=== PATIENT | female | born 1945 | race American Indian/Alaskan Native ===

== ENCOUNTER 2018-07-28 09:07 | Inpatient (IN) | payer MEDICARE ==
[2018-07-28] MEDS: NACL 0.9% 1000 ML 1,000 ML IV SCH (10:30)
[2018-07-28] MEDS ORDERED: ROBINUL ONE (10:55)
--- NOTE | 2018-07-28 11:07 | Anesthesia Consultation ---
<KIERSTEN GIVENS - Last Filed: 07/28/18 11:03> Anesthesia Consult and Med Hx Date of service: 07/28/18 - Airway Anesthetic Teeth Evaluation: Edentulous ROM Head & Neck: Adequate Mental/Hyoid Distance: Adequate Mallampati Class: Class III Intubation Access Assessment: Possibly Difficult - Pre-Operative Health Status ASA Pre-Surgery Classification: ASA3 Proposed Anesthetic Plan: MAC - Pulmonary Hx Smoking: Yes (quit 10 months ago) Hx Asthma: Yes SOB: Yes - Cardiovascular System Hx Hypertension: Yes Hx Cardia Arrhythmia: Yes (HR 39-41, EKG shows 2:1 AV block) - Central Nervous System CVA: Yes Hx Psychiatric Problems: Yes (deoression/anxiety) - Other Systems Hx Obesity: Yes (BMI 44.8) - Additional Comments Anesthesia Medical History Comments: HR is 40', asymptomatic, have not been seen by pairing machine operator before, 12 lead EKG shows AV block. Given 0.4 mg of Robinol with no effect. Place on O2 - 2 l/m <KOFFI HUFFMAN - Last Filed: 07/29/18 11:35> Anesthesia Consult and Med Hx - Airway Anesthetic Teeth Evaluation: Edentulous Mental/Hyoid Distance: Inadequate Mallampati Class: Class III Intubation Access Assessment: Possibly Difficult - Pulmonary Exam CTA: No (mild scattered wheezing) - Cardiac Exam Cardiac Exam: RRR - Pre-Operative Health Status ASA Pre-Surgery Classification: ASA3 Proposed Anesthetic Plan: MAC - Pulmonary Hx Smoking: Yes Hx Asthma: Yes SOB: Yes (chornic; currently at baseline) - Cardiovascular System Hx Hypertension: Yes Hx Cardia Arrhythmia: Yes (HR 30-40s, EKG shows 2:1 AV block) Hx Pacemaker: No - Central Nervous System CVA: Yes Hx Psychiatric Problems: Yes (depression/anxiety) - Other Systems Hx Obesity: Yes - Additional Comments Anesthesia Medical History Comments: Patient originally scheduled for outpatient colonoscopy but found have 2:1 AV block (no previous hx of arrythmia or heart disease). She was admitted directly for cardiology evaluation and is now scheduled for pacemaker placement. Normal EF without significant valvulopathy on TTE 07/28/18. Will administer albuterol preop for mild wheezing on exam.
[2018-07-28] MEDS ORDERED: SODIUM CHLORIDE FLUSH SYRINGE 10 ML IV PRN (13:06)
[2018-07-28] MEDS ORDERED: TYLENOL PO PRN (13:06)
[2018-07-28] MEDS ORDERED: ZOFRAN IV PRN (13:06)
--- NOTE | 2018-07-28 13:17 | Consultation ---
History of Present Illness Consult date: 07/28/18 Consult reason: bradycardia History of present illness: The patient is a 72-year-old woman with a history of hypertension, who usually receives her care at the [facility]. She has no prior cardiac history. She presented to the hospital outpatient GI lab today, ostensibly for a routine colonoscopy. On telemetry prior to her procedure, she was found with persistent marked bradycardia, heart rate 39. She was otherwise asymptomatic for dizziness and fatigue or syncope. Blood pressure was elevated at 170 systolic. A 12-lead EKG was done, which revealed an underlying sinus rhythm with 2-1 AV block. Otherwise there are no ischemic ST or T wave abnormalities on the ECG. A review of the patient's medications shows no AV node blocking agents, and she denies a history of thyroid disease. We have recommended that the planned GI procedure be canceled, the patient will be admitted to telemetry for further workup of the malignant bradycardia, in anticipation of likely pacemaker implant. Past History Past Medical History: hypertension, other (morbid obesity) Medications and Allergies Allergies Allergy/AdvReac Type Severity Reaction Status Date / Time No Known Allergies Allergy Verified 07/27/18 12:28 Home Medications Medication Instructions Recorded Confirmed Last Taken Type ALBUTEROL Inhaler (OR & NICU) 2 puff INHALATION PRN PRN 07/27/18 07/28/18 07/25/18 History Abilify 30 mg PO DAILY 07/27/18 07/28/18 07/25/18 History Aspirin BABY CHEW TAB 81 mg PO DAILY 07/27/18 07/28/18 07/23/18 History Budesonide 32 mcg INNOSTRIL DAILY 07/27/18 07/28/18 07/25/18 History Hydrochlorothiazide 25 mg PO DAILY 07/27/18 07/28/18 07/25/18 History Lisinopril 20 mg PO DAILY 07/27/18 07/28/18 07/25/18 History Mometasone Furoate 0.1 mg TRANSDERMA DAILY 07/27/18 07/28/18 07/25/18 History Simvastatin 20 mg PO DAILY 07/27/18 07/28/18 07/25/18 History Active Meds: Active Medications Sodium Chloride (Nacl 0.9% 1000 Ml) 1,000 mls @ 50 mls/hr IV DIRECT IMANI Last Admin: 07/28/18 10:30 Dose: 50 mls/hr Documented by: Ondansetron HCl (Zofran) 4 mg IV Q8H PRN PRN Reason: Nausea And Vomiting Review of Systems Cardiovascular: lightheadedness, no chest pain, no orthopnea, no palpitations, no rapid/irregular heart beat, no edema, no syncope, no shortness of breath Physical Examination Vital Signs Temp Pulse Resp BP Pulse Ox 98.0 F 42 L 12 103/71 95 07/28/18 10:24 07/28/18 10:24 07/28/18 10:24 07/28/18 10:24 07/28/18 10:24 General appearance: no acute distress HEENT: Positive: PERRL Neck: Positive: neck supple Cardiac: Positive: Reg Rate and Rhythm Lungs: Positive: Decreased Breath Sounds Neuro: Positive: Grossly Intact Abdomen: Positive: Soft Female genitourinary: deferred Skin: Positive: Clear Extremities: Absent: edema EKG interpretations - Telemetry EKG Rhythm: Sinus Rhythm (with high grade, 2-1 AV block.) Assessment and Plan - Patient Problems (1) Heart block Current Visit: Yes Status: Acute Plan to address problem: Patient is admitted with severe bradycardia, sinus with 2-1 AV block, we will get thyroid profile, routine electrolytes, chest x-ray, continue telemetry monitoring. Would likely need pacemaker implant. (2) Uncontrolled hypertension Current Visit: Yes Status: Acute Plan to address problem: Blood pressure control with lisinopril and Procardia XL. Echocardiogram has been ordered for left ventricular function.
--- NOTE | 2018-07-28 13:32 | XRay Report ---
PORTABLE CHEST: Heart block. An AP portable view of the chest demonstrates a normal cardiac contour considering the limits of this technique. The lungs are clear with no evidence of infiltrate, fluid or failure. IMPRESSION: Normal portable chest.
[2018-07-28] MEDS: ZESTRIL PO SCH ×2 (14:00→22:03)
[2018-07-28] MEDS ORDERED: [UNRECOGNIZED DRUG - REMARK] INHALATION PRN (14:41)
[2018-07-28] MEDS ORDERED: NON-FORMULARY (Simvastatin 20 MG) PO SCH (14:45)
[2018-07-28] MEDS ORDERED: ABILIFY 30 MG PO SCH (14:45)
[2018-07-28] MEDS ORDERED: NON-FORMULARY (Lisinopril 20 MG) PO SCH (14:45)
[2018-07-28] MEDS ORDERED: NON-FORMULARY (Aspirin Baby Chew Tab 81 MG) PO SCH (14:45)
[2018-07-28] MEDS ORDERED: NON-FORMULARY (Hydrochlorothiazide 25 MG) PO SCH (14:45)
[2018-07-28] MEDS ORDERED: BUDESONIDE 32 MCG InNostril SCH (14:45)
--- NOTE | 2018-07-28 14:46 | History and Physical Report ---
History of Present Illness Date of examination: 07/28/18 Date of admission: 07/28/18 13:06 Chief complaint: Complete Heart Block in GI lab History of present illness: 72-year-old woman with a history of hypertension ,Asthma , CVA and pychiatric problems--Depression/anxiety who usually receives her care at the [facility] with no prior cardiac history presented to the hospital outpatient GI lab today, for a routine colonoscopy. On telemetry prior to her procedure, she was found with persistent marked bradycardia, heart rate 39. She was otherwise asymptomatic for dizziness and fatigue or syncope. Blood pressure was elevated . A 12-lead EKG was done, which revealed an underlying sinus rhythm with 2-1 AV block. Otherwise there are no ischemic ST or T wave abnormalities on the ECG. A review of the patient's medications shows no AV node blocking agents, and she denies a history of thyroid disease. GI procedure was canceled, Patient to be admitted to telemetry for further workup of the malignant bradycardia, in anticipation of likely pacemaker implant. Past History Past Medical History: hypertension, stroke, other (morbid obesity,Depression ,Anxiety,Asthma) Past Surgical History: Other Social history: smoking (Former smoker) Family history: hypertension Medications and Allergies Allergies Allergy/AdvReac Type Severity Reaction Status Date / Time No Known Allergies Allergy Verified 07/27/18 12:28 Home Medications Medication Instructions Recorded Confirmed Last Taken Type ALBUTEROL Inhaler (OR & NICU) 2 puff INHALATION PRN PRN 07/27/18 07/28/18 07/25/18 History Abilify 30 mg PO DAILY 07/27/18 07/28/18 07/25/18 History Aspirin BABY CHEW TAB 81 mg PO DAILY 07/27/18 07/28/18 07/23/18 History Budesonide 32 mcg INNOSTRIL DAILY 07/27/18 07/28/18 07/25/18 History Hydrochlorothiazide 25 mg PO DAILY 07/27/18 07/28/18 07/25/18 History Lisinopril 20 mg PO DAILY 07/27/18 07/28/18 07/25/18 History Mometasone Furoate 0.1 mg TRANSDERMA DAILY 07/27/18 07/28/18 07/25/18 History Simvastatin 20 mg PO DAILY 07/27/18 07/28/18 07/25/18 History Active Meds: Active Medications Acetaminophen (Tylenol) 650 mg PO Q4H PRN PRN Reason: Pain MILD(1-3)/Fever >100.5/LAI Aspirin (Baby Aspirin) 81 mg PO QDAY [facility] Enoxaparin Sodium (Lovenox) 40 mg SUB-Q BID IMANI Sodium Chloride (Nacl 0.9% 1000 Ml) 1,000 mls @ 50 mls/hr IV DIRECT IMANI Last Admin: 07/28/18 10:30 Dose: 50 mls/hr Documented by: Lisinopril (Zestril) 20 mg PO BID IM[facility] Miscellaneous Medication (Abilify) 30 mg PO DAILY IMANI Miscellaneous Medication (Albuterol Inhaler (Or & Nicu)) 2 puff INHALATION PRN PRN PRN Reason: Wheezing Miscellaneous Medication (Aspirin Baby Chew Tab) 81 mg PO DAILY IMANI Miscellaneous Medication (Budesonide) 32 mcg InNostril DAILY IM[facility] Miscellaneous Medication (Hydrochlorothiazide) 25 mg PO DAILY IM[facility] Miscellaneous Medication (Lisinopril) 20 mg PO DAILY IM[facility] Miscellaneous Medication (Simvastatin) 20 mg PO DAILY [facility] Nifedipine (Procardia Xl) 60 mg PO QDAY [facility] Ondansetron HCl (Zofran) 4 mg IV Q8H PRN PRN Reason: Nausea And Vomiting Sodium Chloride (Sodium Chloride Flush Syringe 10 Ml) 10 ml IV BID IMANI Sodium Chloride (Sodium Chloride Flush Syringe 10 Ml) 10 ml IV PRN PRN PRN Reason: LINE FLUSH Review of Systems All systems: negative Exam - Constitutional Vitals: Temp Pulse Resp BP Pulse Ox 98.0 F 42 L 12 103/71 95 07/28/18 10:24 07/28/18 10:24 07/28/18 10:24 07/28/18 10:24 07/28/18 10:24 General appearance: Present: no acute distress, well-nourished - EENT Eyes: Present: PERRL ENT: hearing intact, clear oral mucosa - Neck Neck: Present: supple, normal ROM - Respiratory Respiratory effort: normal Respiratory: bilateral: CTA - Cardiovascular Heart rate: 39 Rhythm: regular Heart Sounds: Present: S1 & S2. Absent: rub, click - Extremities Extremities: no ischemia, pulses intact, pulses symmetrical, No edema Peripheral Pulses: within normal limits - Abdominal General gastrointestinal: Present: soft, non-tender, non-distended, normal bowel sounds Female genitourinary: Present: normal - Integumentary Integumentary: Present: clear, warm, dry - Musculoskeletal Musculoskeletal: gait normal, strength equal bilaterally - Psychiatric Psychiatric: appropriate mood/affect, intact judgment & insight - Neurologic Neurologic: CNII-XII intact, moves all extremities - Allied Health Allied health notes reviewed: nursing, case management Results - Labs CBC & Chem 7: 07/28/18 14:30 - Imaging and Cardiology EKG: report reviewed Chest x-ray: report reviewed (NAF) Assessment and Plan Advance Directives: Yes (Full code) VTE prophylaxis?: Chemical Plan of care discussed with patient/family: Yes - Patient Problems (1) Complete heart block Current Visit: Yes Status: Acute Plan to address problem: Cardiology consult for possible pacemaker insertion (2) Hypertensive emergency Current Visit: Yes Status: Acute Plan to address problem: Patient resumed on her home antihypertensives including lisinopril 20 mg once a day and hydrochlorothiazide 25 mg once a day IV hydralazine 10 mg every every 3 hours ordered for blood pressure more than 160/100 (3) Asthma Current Visit: Yes Status: Chronic Qualifiers: Asthma persistence: unspecified Plan to address problem: Continue albuterol inhalers on a when necessary basis (4) Hyperlipidemia Current Visit: Yes Status: Chronic Qualifiers: Hyperlipidemia type: mixed hyperlipidemia Qualified Code(s): E78.2 - Mixed hyperlipidemia Plan to address problem: Continue statins (5) Allergic rhinitis Current Visit: Yes Status: Chronic Plan to address problem: Continue steroid inhalers (6) Depression Current Visit: Yes Status: Chronic Qualifiers: Depression Type: unspecified Qualified Code(s): F32.9 - Major depressive disorder, single episode, unspecified Plan to address problem: Continue Abilify (7) DVT prophylaxis Current Visit: Yes Status: Acute Plan to address problem: Continue Lovenox and GI prophylaxis
[2018-07-28 14:54] LABS: Basophils # (Auto) 0.1 K/mm3 (0.0-0.1); Basophils % (Auto) 0.7 % (0.0-1.8); Eosinophils # (Auto) 0.2 K/mm3 (0.0-0.4); Eosinophils % (Auto) 2.3 % (0.0-4.3); Hematocrit 44.5 % (30.3-42.9); Hemoglobin 14.7 gm/dl (10.1-14.3); Lymphocytes # (Auto) 2.3 K/mm3 (1.2-5.4); Lymphocytes % (Auto) 21.9 % (13.4-35.0); Mean Corpuscular HGB Conc 33 % (30-34); Mean Corpuscular Volume 78 fl (79-97); Monocytes # (Auto) 0.6 K/mm3 (0.0-0.8); Monocytes % (Auto) 5.9 % (0.0-7.3); Platelet Count 298 K/mm3 (140-440); Red Blood Count 5.69 M/mm3 (3.65-5.03)
[2018-07-28] MEDS ORDERED: PROVENTIL IH PRN (15:48)
[2018-07-28] MEDS ORDERED: BABY ASPIRIN PO SCH (16:00)
[2018-07-28] MEDS ORDERED: ZESTRIL PO SCH (16:00)
[2018-07-28 17:09] LABS: Alanine Aminotransferase 23 units/L (7-56); BUN/Creatinine Ratio 17; Blood Urea Nitrogen 15 mg/dL (7-17); Calcium 9.4 mg/dL (8.4-10.2); Hemolysis Index 11
[2018-07-28] MEDS: PROCARDIA XL PO SCH ×2 (18:39→19:12)
[2018-07-28] MEDS: HCTZ PO SCH (18:39)
[2018-07-28] MEDS: PRAVACHOL PO SCH (22:01)
[2018-07-28] MEDS: FLONASE NS SCH (22:02)
[2018-07-28] MEDS: LOVENOX SUB-Q SCH (22:02)
[2018-07-28] MEDS: ABILIFY PO SCH (22:02)
[2018-07-28] MEDS: SODIUM CHLORIDE FLUSH SYRINGE 10 ML IV SCH (22:03)
[2018-07-29] MEDS: NACL 0.9% 1000 ML 1,000 ML IV SCH ×2 (04:07→12:52)
[2018-07-29 06:26] LABS: BUN/Creatinine Ratio 21; Blood Urea Nitrogen 21 mg/dL (7-17); Calcium 8.7 mg/dL (8.4-10.2); Hemolysis Index 19
[2018-07-29] MEDS: FLONASE NS SCH (09:35)
[2018-07-29] MEDS: ABILIFY PO SCH (09:35)
[2018-07-29] MEDS: HCTZ PO SCH (09:36)
[2018-07-29] MEDS: PROCARDIA XL PO SCH (09:36)
[2018-07-29] MEDS: LOVENOX SUB-Q SCH ×2 (09:36→21:53)
[2018-07-29] MEDS: SODIUM CHLORIDE FLUSH SYRINGE 10 ML IV SCH ×2 (09:36→21:56)
[2018-07-29] MEDS: BABY ASPIRIN PO SCH (09:36)
[2018-07-29] MEDS: ZESTRIL PO SCH ×2 (09:36→21:53)
[2018-07-29] MEDS ORDERED: XYLOCAINE MPF 2% ONE (10:57)
[2018-07-29] MEDS ORDERED: DIPRIVAN 10 MG/ML IV ONE ×2 (10:57)
[2018-07-29] MEDS ORDERED: VERSED ONE (11:00)
[2018-07-29] MEDS ORDERED: SUBLIMAZE ONE (11:01)
[2018-07-29] MEDS ORDERED: NEO SYNEPHRINE/NS Syringe(OR USE) IV ONE ×3 (11:13)
[2018-07-29] MEDS ORDERED: NEO SYNEPHRINE ONE (11:14)
[2018-07-29] MEDS ORDERED: PROAIR IH ONE (11:23)
--- NOTE | 2018-07-29 11:36 | Anesthesia Day of Surgery ---
Anesthesia Day of Surgery - Day of Surgery Patient Examined: Yes Patient H&P Reviewed: Yes Patient is NPO: Yes Beta Blockers: No (contraindicated (patient with 2:1 AV block; finesse to 30s) )
[2018-07-29] MEDS ORDERED: NACL 0.9% 1,000 ML, .VANCOMYCIN VIAL 1,000 MG IR ONE (12:00)
[2018-07-29 12:19] LABS: INR 1.02 (0.87-1.13)
--- NOTE | 2018-07-29 12:22 | Consultation ---
History of Present Illness Consult date: 07/29/18 Consult reason: other History of present illness: 72 YO woman with h/o htn who presented to hospital yesterday for elective colonoscopy and was noted to have severe bradycardia. Procedure was cancelled and patient was admitted to hospital. Patient reports she has not had any episodes of syncope or pre-syncope. She has intermittent dizzyness and frequent exertional fatigue. She has not had any previous cardiac complaints. Initial ECG was consistent with sinus rhythm with 2:1 AV block but current telemetry monitoring is consistent with complete heart block and junctional escape rhythm. Echocardiogram yesterday revealed normal EF with concentric LVH. Past History Past Medical History: hypertension, stroke, other (morbid obesity,Depression ,Anxiety,Asthma) Past Surgical History: Other Social history: smoking (Former smoker) Family history: hypertension Medications and Allergies Allergies Allergy/AdvReac Type Severity Reaction Status Date / Time No Known Allergies Allergy Verified 07/27/18 12:28 Home Medications Medication Instructions Recorded Confirmed Last Taken Type ALBUTEROL Inhaler (OR & NICU) 2 puff INHALATION PRN PRN 07/27/18 07/28/18 07/25/18 History Abilify 30 mg PO DAILY 07/27/18 07/28/18 07/25/18 History Aspirin BABY CHEW TAB 81 mg PO DAILY 07/27/18 07/28/18 07/23/18 History Budesonide 32 mcg INNOSTRIL DAILY 07/27/18 07/28/18 07/25/18 History Hydrochlorothiazide 25 mg PO DAILY 07/27/18 07/28/18 07/25/18 History Lisinopril 20 mg PO DAILY 07/27/18 07/28/18 07/25/18 History Mometasone Furoate 0.1 mg TRANSDERMA DAILY 07/27/18 07/28/18 07/25/18 History Simvastatin 20 mg PO DAILY 07/27/18 07/28/18 07/25/18 History Budesonide/Formoterol Fumarate 160 mcg INHALATION BID 07/28/18 07/28/18 Unknown History [Symbicort 160-4.5 Mcg Inhaler] Active Meds: Active Medications Acetaminophen (Tylenol) 650 mg PO Q4H PRN PRN Reason: Pain MILD(1-3)/Fever >100.5/LAI Albuterol (Proventil) 2.5 mg IH Q4HRT PRN PRN Reason: Wheezing Aripiprazole (Abilify) 30 mg PO QDAY [facility] Last Admin: 07/29/18 09:35 Dose: Not Given Documented by: Aspirin (Baby Aspirin) 81 mg PO QDAY [facility] Last Admin: 07/29/18 09:36 Dose: Not Given Documented by: Enoxaparin Sodium (Lovenox) 40 mg SUB-Q BID [facility] Last Admin: 07/29/18 09:36 Dose: Not Given Documented by: Fluticasone Propionate (Flonase) 100 mcg NS QDAY [facility] Last Admin: 07/29/18 09:35 Dose: 100 mcg Documented by: Hydrochlorothiazide (Hctz) 25 mg PO QDAY [facility] Last Admin: 07/29/18 09:36 Dose: Not Given Documented by: Sodium Chloride (Nacl 0.9% 1000 Ml) 1,000 mls @ 50 mls/hr IV DIRECT [facility] Last Admin: 07/29/18 04:07 Dose: 50 mls/hr Documented by: Lisinopril (Zestril) 20 mg PO BID [facility] Last Admin: 07/29/18 09:36 Dose: Not Given Documented by: Nifedipine (Procardia Xl) 60 mg PO QDAY [facility] Last Admin: 07/29/18 09:36 Dose: Not Given Documented by: Ondansetron HCl (Zofran) 4 mg IV Q8H PRN PRN Reason: Nausea And Vomiting Pravastatin Sodium (Pravachol) 40 mg PO QHS [facility] Last Admin: 07/28/18 22:01 Dose: 40 mg Documented by: Sodium Chloride (Sodium Chloride Flush Syringe 10 Ml) 10 ml IV BID [facility] Last Admin: 07/29/18 09:36 Dose: 10 ml Documented by: Sodium Chloride (Sodium Chloride Flush Syringe 10 Ml) 10 ml IV PRN PRN PRN Reason: LINE FLUSH Review of Systems All systems: negative (per hpi) Physical Examination Vital Signs Temp Pulse Resp BP Pulse Ox 98.0 F 42 L 12 103/71 95 07/28/18 10:24 07/28/18 10:24 07/28/18 10:24 07/28/18 10:24 07/28/18 10:24 General appearance: no acute distress HEENT: Positive: PERRL Neck: Positive: neck supple. Negative: JVD/HJR Cardiac: Positive: Reg Rate and Rhythm Lungs: Positive: clear to auscultation Neuro: Positive: Grossly Intact Abdomen: Positive: Soft, Active Bowel Sounds Extremities: Absent: edema Results 07/28/18 14:30 07/29/18 05:36 Cardiac Enzymes 07/28/18 Range/Units 14:30 AST 17 (5-40) units/L CBC 07/28/18 Range/Units 14:30 WBC 10.5 (4.5-11.0) K/mm3 RBC 5.69 H (3.65-5.03) M/mm3 Hgb 14.7 H (10.1-14.3) gm/dl Hct 44.5 H (30.3-42.9) % Plt Count 298 (140-440) K/mm3 Lymph # 2.3 (1.2-5.4) K/mm3 Bonner # 0.6 (0.0-0.8) K/mm3 Eos # 0.2 (0.0-0.4) K/mm3 Baso # 0.1 (0.0-0.1) K/mm3 Comprehensive Metabolic Panel 07/28/18 07/29/18 Range/Units 14:30 05:36 Sodium 141 141 (137-145) mmol/L Potassium 4.7 4.0 (3.6-5.0) mmol/L Chloride 101.6 104.3 (98-107) mmol/L Carbon Dioxide 26 26 (22-30) mmol/L BUN 15 21 H (7-17) mg/dL Creatinine 0.9 1.0 (0.7-1.2) mg/dL Glucose 111 H 128 H (65-100) mg/dL Calcium 9.4 8.7 (8.4-10.2) mg/dL AST 17 (5-40) units/L ALT 23 (7-56) units/L Alkaline Phosphatase 92 (35-129) units/L Total Protein 7.8 (6.3-8.2) g/dL Albumin 4.0 (3.9-5) g/dL Assessment and Plan Complete heart block with junctional escape rhythm Htn Plan: Extensively discussed PPM implant. She wants to proceed.
[2018-07-29] MEDS ORDERED: NACL 0.9% 500 ML IR ONE (12:25)
[2018-07-29] MEDS ORDERED: MARCAINE 0.5% INFILTRATI ONE (12:26)
[2018-07-29] MEDS ORDERED: ANCEF/STERILE WATER 2 GM/20 ML 2 GM/20 ML SYRINGE IV ONE (12:26)
[2018-07-29] MEDS ORDERED: XYLOCAINE 1% 20 mL ONE (12:26)
[2018-07-29] MEDS ORDERED: NACL 0.9% 1000 ML 1,000 ML ONE (12:38)
--- NOTE | 2018-07-29 12:54 | Progress Note ---
Assessment and Plan Assessment and plan: 72yr Old female patient with significant past medical history of hypertension was planned for outpatient colonoscopy She was found to have bradycardia with heart rate ranging between 39-46, patient was sent to [facility] emergency room for further evaluation and management. Patient was found to have complete heart block, asymptomatic. Patient was evaluated by cardiology/electrophysiology permanent pacemaker placement today. --Complete heart block; Evaluated by cardiology, cage tender s/p PPM placement today, postoperative care --Hypertensive emergency; present on admission Blood pressures moderate control, continue current antihypertensives and when necessary medications ----Bronchial asthma; Oxygen titrated O2 sats more than 90%, nebs Supportive care --History of depression; continue current home medications --Dyslipidemia; stable on lipid-lowering medications --Allergies/URI symptoms; Zyrtec, Nasonex. Supportive care --DVT prophylaxis; Lovenox Possible discharge in 1-2 days if stable Discharge planning per case management; home health as needed History Interval history: Patient seen and examined medical records reviewed Patient admitted with complete heart block, evaluated by EP /intelligence engineer patient underwent Permanent pacemaker placement Patient feels better complaints of some nasal congestion Denies chest pain or shortness of breath Alert awake oriented 3 not in acute distress Vital signs noted Hospitalist Physical - Constitutional Vitals: Temp Pulse Resp BP Pulse Ox 98.4 F 39 L 20 101/35 100 07/29/18 08:00 07/29/18 08:00 07/29/18 08:00 07/29/18 08:00 07/29/18 08:00 General appearance: Present: no acute distress, well-nourished, obese (morbidly obese) - EENT Eyes: Present: PERRL, EOM intact - Neck Neck: Present: supple, normal ROM - Respiratory Respiratory effort: normal Respiratory: bilateral: diminished, negative: rales, rhonchi, wheezing - Cardiovascular Rhythm: regular Heart Sounds: Present: S1 & S2 - Extremities Extremities: no ischemia, No edema Extremity abnormal: other (left arm sling in place) - Abdominal General gastrointestinal: soft, non-tender, non-distended, normal bowel sounds - Integumentary Integumentary: Present: clear, warm - Psychiatric Psychiatric: appropriate mood/affect, cooperative - Neurologic Neurologic: CNII-XII intact, moves all extremities Results - Labs CBC & Chem 7: 07/28/18 14:30 07/29/18 05:36 Labs: Laboratory Last Values WBC 10.5 K/mm3 (4.5-11.0) 07/28/18 14:30 RBC 5.69 M/mm3 (3.65-5.03) H 07/28/18 14:30 Hgb 14.7 gm/dl (10.1-14.3) H 07/28/18 14:30 Hct 44.5 % (30.3-42.9) H 07/28/18 14:30 MCV 78 fl (79-97) L 07/28/18 14:30 MCH 26 pg (28-32) L 07/28/18 14:30 MCHC 33 % (30-34) 07/28/18 14:30 RDW 15.0 % (13.2-15.2) 07/28/18 14:30 Plt Count 298 K/mm3 (140-440) 07/28/18 14:30 Lymph % (Auto) 21.9 % (13.4-35.0) 07/28/18 14:30 Putnam % (Auto) 5.9 % (0.0-7.3) 07/28/18 14:30 Eos % (Auto) 2.3 % (0.0-4.3) 07/28/18 14:30 Baso % (Auto) 0.7 % (0.0-1.8) 07/28/18 14:30 Lymph # 2.3 K/mm3 (1.2-5.4) 07/28/18 14:30 [place]nam # 0.6 K/mm3 (0.0-0.8) 07/28/18 14:30 Eos # 0.2 K/mm3 (0.0-0.4) 07/28/18 14:30 Baso # 0.1 K/mm3 (0.0-0.1) 07/28/18 14:30 Seg Neutrophils % 69.2 % (40.0-70.0) 07/28/18 14:30 Seg Neutrophils # 7.3 K/mm3 (1.8-7.7) 07/28/18 14:30 PT 13.1 Sec. (12.2-14.9) 07/29/18 11:35 INR 1.02 (0.87-1.13) 07/29/18 11:35 Sodium 141 mmol/L (137-145) 07/29/18 05:36 Potassium 4.0 mmol/L (3.6-5.0) 07/29/18 05:36 Chloride 104.3 mmol/L (98-107) 07/29/18 05:36 Carbon Dioxide 26 mmol/L (22-30) 07/29/18 05:36 15 mmol/L 07/29/18 05:36 BUN 21 mg/dL (7-17) H 07/29/18 05:36 1.0 mg/dL (0.7-1.2) 07/29/18 05:36 Estimated GFR > 60 ml/min 07/29/18 05:36 21 % 07/29/18 05:36 Glucose 128 mg/dL (65-100) H 07/29/18 05:36 Calcium 8.7 mg/dL (8.4-10.2) 07/29/18 05:36 Magnesium 1.80 mg/dL (1.7-2.3) 07/28/18 14:30 0.40 mg/dL (0.1-1.2) 07/28/18 14:30 AST 17 units/L (5-40) 07/28/18 14:30 ALT 23 units/L (7-56) 07/28/18 14:30 92 units/L (35-129) 07/28/18 14:30 7.8 g/dL (6.3-8.2) 07/28/18 14:30 4.0 g/dL (3.9-5) 07/28/18 14:30 1.1 % 07/28/18 14:30 TSH 1.540 mlU/mL (0.270-4.200) 07/28/18 14:30 Active Medications - Current Medications Current Medications: Generic Name Dose Route Start Last Admin Trade Name Freq PRN Reason Stop Dose Admin Acetaminophen 650 mg 07/28/18 13:06 Tylenol PO Q4H PRN Pain MILD(1-3)/Fever >100.5/LAI Albuterol 2.5 mg 07/28/18 15:48 Proventil IH Q4HRT PRN Wheezing Aripiprazole 30 mg 07/28/18 16:00 07/29/18 09:35 Abilify PO Not Given QDAY [facility] Aspirin 81 mg 07/29/18 10:00 07/29/18 09:36 Baby Aspirin PO Not Given QDAY [facility] Enoxaparin Sodium 40 mg 07/28/18 22:00 07/29/18 09:36 Lovenox SUB-Q Not Given BID [facility] Fluticasone Propionate 100 mcg 07/28/18 21:00 07/29/18 09:35 Flonase NS 100 mcg QDAY IM[facility] Administration Hydrochlorothiazide 25 mg 07/28/18 16:00 07/29/18 09:36 Hctz PO Not Given QDAY [facility] Sodium Chloride 1,000 mls @ 50 mls/hr 07/28/18 09:00 07/29/18 04:07 Nacl 0.9% 1000 Ml IV 50 mls/hr DIRECT IMANI Administration Lisinopril 20 mg 07/28/18 14:00 07/29/18 09:36 Zestril PO Not Given BID [facility] Nifedipine 60 mg 07/28/18 14:30 07/29/18 09:36 Procardia Xl PO Not Given QDAY [facility] Ondansetron HCl 4 mg 07/28/18 13:06 Zofran IV Q8H PRN Nausea And Vomiting Pravastatin Sodium 40 mg 07/28/18 22:00 07/28/18 22:01 Pravachol PO 40 mg QHS IM[facility] Administration Sodium Chloride 10 ml 07/28/18 22:00 07/29/18 09:36 Sodium Chloride Flush Syringe 10 Ml IV 10 ml BID IMANI Administration Sodium Chloride 10 ml 07/28/18 13:06 Sodium Chloride Flush Syringe 10 Ml IV PRN PRN LINE FLUSH
[2018-07-29] MEDS ORDERED: .VANCOMYCIN VIAL 1,000 MG in NACL 0.9% 1,000 ML IRRIGATION ONE (13:17)
[2018-07-29] MEDS ORDERED: NORCO 5/325 PO PRN (13:59)
--- NOTE | 2018-07-29 13:59 | Event Note ---
Date: 07/29/18 Patient underwent dual chamber pacemaker implant without apparent complications. Recommend: 1. Check Chest Xray 2. OK to discharge tomorrow from cardiac perspective if otherwise stable 3. Prescribe short course of pain medication (percocet) at time of discharge. Timo Mathew MD
[2018-07-29] MEDS ORDERED: ANCEF/NS 1 GM/50 ML 1 GM/50 ML BAG IV SCH (14:00)
--- NOTE | 2018-07-29 16:33 | XRay Report ---
PROCEDURE: XR CHEST 1V AP TECHNIQUE: Chest radiograph single view. HISTORY: Pacemaker Postop COMPARISONS: None . FINDINGS: Single frontal view of the chest was acquired and demonstrates presence of cardiomegaly. Th ere is a pacing device. There is no evidence of congestive heart failure. There is no pneumothorax. IMPRESSION: Cardiomegaly This document is electronically signed by Martín Banks MD., July 29 2018 04:31:57 PM ET
[2018-07-29] MEDS ORDERED: CLARITIN-D 24HR PO ONE (17:30)
[2018-07-29] MEDS: PRAVACHOL PO SCH (21:53)
[2018-07-29] MEDS: ANCEF/NS 1 GM/50 ML 1 GM/50 ML BAG IV SCH (21:53)
[2018-07-30] MEDS: ANCEF/NS 1 GM/50 ML 1 GM/50 ML BAG IV SCH (04:55)
[2018-07-30] MEDS ORDERED: CLARITIN-D 24HR PO SCH (10:00)
[2018-07-30] MEDS: SODIUM CHLORIDE FLUSH SYRINGE 10 ML IV SCH (10:06)
--- NOTE | 2018-07-30 11:25 | Discharge Summary ---
Providers - Providers Date of Admission: 07/28/18 13:06 Date of discharge: 07/30/18 Attending physician: TANJA GAMA 07/28/18 12:28 Consult to Cardiology [CONS] Urgent Consulting Provider: DU STEINBERG Reason For Exam: ABNORMAL EKG Primary care physician: JAIME NAIR Hospitalization Reason for admission: Bradycardia prior to colonoscopy Condition: Stable Pertinent studies: Dual-chamber Chamber pacemaker placement Echocardiogram; EF 60-65% [facility] Hospital course: 72yr Old female patient with significant past medical history of hypertension was planned for outpatient colonoscopy She was found to have bradycardia with heart rate ranging between 39-46, patient was sent to [facility] emergency room for further evaluation and management. Patient was found to have complete heart block, asymptomatic. Patient was evaluated by cardiology/electrophysiology. Patient had permanent pacemaker placement.Patient's symptoms improved. Today patient feels better,Vital signs stable Physical exam prior to discharge is stable Discharge Diagnosis: --Complete heart block; Evaluated by cardiology, dance coach s/p PPM placement .f/u cardiology per schedule upon discharge. --Hypertensive emergency; present on admission Blood pressures moderate control,on antihypertensives and when necessary medications ----Bronchial asthma; Oxygen titrated O2 sats more than 90%, nebs Supportive care --History of depression; continue current home medications --Dyslipidemia; stable on lipid-lowering medications --Allergies/URI symptoms; Zyrtec, Nasonex. --DVT prophylaxis; Lovenox DC home,f/u PMD,Cardiology per schedule Disposition: DC/[place]-06 HOME UNDER HOME [facility] Time spent for discharge: 32 min Core Measure Documentation - Palliative Care Palliative Care/ Comfort Measures: Not Applicable - Core Measures Any of the following diagnoses?: none Exam - Constitutional Vitals: Temp Pulse Resp BP Pulse Ox 97.5 F L 84 16 143/68 96 07/30/18 08:42 07/30/18 08:42 07/30/18 08:42 07/30/18 08:42 07/30/18 08:42 General appearance: Present: no acute distress, well-nourished, obese - EENT Eyes: Present: PERRL, EOM intact - Neck Neck: Present: supple, normal ROM - Respiratory Respiratory effort: normal Respiratory: bilateral: diminished, negative: rales, rhonchi - Cardiovascular Rhythm: regular Heart Sounds: Present: S1 & S2 - Extremities Extremities: no ischemia, No edema - Abdominal General gastrointestinal: Present: soft, non-tender, non-distended, normal bowel sounds - Integumentary Integumentary: Present: clear, warm - Musculoskeletal Musculoskeletal: strength equal bilaterally - Psychiatric Psychiatric: appropriate mood/affect - Neurologic Neurologic: moves all extremities Plan Activity: advance as tolerated, fall precautions Diet: other (cardiac diet) Additional Instructions: If you have chest pain or shortness of breath nancy guthrie MD or go to the emergency room. Advised to follow post pacemaker placement instructions, left arm sling, no lifting weights with the left palm Follow up with: JAIME NAIR JR, MD [Primary Care Provider] - 7 Days MALATHI DOMINGUEZ MD [Staff Physician] - 7 Days Prescriptions: Fluticasone [Flonase] 100 mcg NS QDAY #1 bottle oxyCODONE /ACETAMINOPHEN [Percocet 5/325] 1 tab PO BID PRN #10 tablet PRN Reason: Pain , Severe (7-10)
--- NOTE | 2018-07-30 11:27 | Progress Note ---
Assessment and Plan Complete heart block s/p DC PPM Systemic Hypertension Obesity Recommendations: May go home cardiac [facility] Follow-up Dr Mathew in 1-2 weeks Cardiology will sign off Subjective Date of service: 07/30/18 Principal diagnosis: CHB Interval history: Patient is doing well PPM site is intact with no evidence of hematoma Objective Vital Signs Temp Pulse Resp BP Pulse Ox 07/30/18 08:42 97.5 F L 84 16 143/68 96 07/30/18 08:34 18 98 07/30/18 04:29 98.1 F 93 H 18 134/74 93 07/30/18 00:00 98.1 F 84 18 154/66 95 07/29/18 21:00 77 07/29/18 19:50 79 18 143/63 97 07/29/18 16:01 97.9 F 84 20 114/54 92 07/29/18 15:03 64 17 129/60 97 07/29/18 14:45 69 23 122/62 97 07/29/18 14:30 71 15 108/65 97 07/29/18 14:15 69 14 127/61 97 07/29/18 13:00 74 - Physical Examination HEENT: Positive: PERRL Neck: Positive: neck supple. Negative: JVD/HJR Cardiac: Positive: Reg Rate and Rhythm Lungs: Positive: Normal Exam Neuro: Positive: Grossly Intact Abdomen: Positive: Soft, Active Bowel Sounds Skin: Positive: Clear Extremities: Absent: edema - Labs and Meds Coagulation 07/29/18 Range/Units 11:35 PT 13.1 (12.2-14.9) Sec. INR 1.02 (0.87-1.13) - Imaging and Cardiology EKG: report reviewed
[2018-07-30] MEDS: BABY ASPIRIN PO SCH (11:57)
[2018-07-30] MEDS: LOVENOX SUB-Q SCH (11:57)
[2018-07-30] MEDS: PROCARDIA XL PO SCH (11:57)
[2018-07-30] MEDS: HCTZ PO SCH (11:57)
[2018-07-30] MEDS: ZESTRIL PO SCH (12:06)
[2018-07-30] MEDS: ABILIFY PO SCH (12:08)
[2018-07-30] MEDS: FLONASE NS SCH (12:08)
[2018-07-30 14:02] VITALS: BP 146/80
== END 2018-07-30 19:00 | disposition home health service (06) | DRG 243 ==
LOC: GIO 09:07 → 4A 13:06
PROVIDERS: ADMIT Internal Medicine; ATTEND Internal Medicine
PROC: 0JH606Z Insertion of Pacemaker, Dual Chamber into Chest Subcutaneous Tissue and Fascia, Open Approach (ICD-10-PCS; principal; 2018-07-29)
PROC: 02H63JZ Insertion of Pacemaker Lead into Right Atrium, Percutaneous Approach (ICD-10-PCS; 2018-07-29)
PROC: 02HK3JZ Insertion of Pacemaker Lead into Right Ventricle, Percutaneous Approach (ICD-10-PCS; 2018-07-29)
DX: I44.2 Atrioventricular block, complete (principal); I16.1 Hypertensive emergency; Z68.42 Body mass index [BMI] 45.0-49.9, adult; J45.909 Unspecified asthma, uncomplicated; F41.9 Anxiety disorder, unspecified; F32.9 Major depressive disorder, single episode, unspecified; I10 Essential (primary) hypertension; E66.01 Morbid (severe) obesity due to excess calories; I45.9 Conduction disorder, unspecified; E78.2 Mixed hyperlipidemia; Z86.010 Personal history of colon polyps; Z87.891 Personal history of nicotine dependence; Z79.51 Long term (current) use of inhaled steroids; Z79.82 Long term (current) use of aspirin; Z79.899 Other long term (current) drug therapy; Z86.73 Personal history of transient ischemic attack (TIA), and cerebral infarction without residual deficits; Z82.49 Family history of ischemic heart disease and other diseases of the circulatory system
CPT/HCPCS: 33208; 36415; 71045; 80048; 80053; 82962; 83735; 84443; 85025; 85610; 93005; 93010; 93306; G0378; A9270-GY; C1779; C1781; C1785; C1892; J0690; J1650; J2250; J2370; J2704; J3010; J3370; J7030

== ENCOUNTER 2018-09-02 08:50 | Day surgery (SDC) | payer MEDICARE ==
[2018-09-02] MEDS ORDERED: ECOTRIN PO ONE (09:06)
[2018-09-02] MEDS ORDERED: NACL 0.9% 500 ML 500 ML IV SCH (10:00)
[2018-09-02 10:24] LABS: Basophils # (Auto) 0.1 K/mm3 (0.0-0.1); Basophils % (Auto) 0.5 % (0.0-1.8); Eosinophils # (Auto) 0.4 K/mm3 (0.0-0.4); Eosinophils % (Auto) 3.2 % (0.0-4.3); Hematocrit 41.3 % (30.3-42.9); Hemoglobin 13.6 gm/dl (10.1-14.3); Lymphocytes # (Auto) 2.9 K/mm3 (1.2-5.4); Lymphocytes % (Auto) 25.4 % (13.4-35.0); Mean Corpuscular HGB Conc 33 % (30-34); Mean Corpuscular Volume 77 fl (79-97); Monocytes # (Auto) 0.9 K/mm3 (0.0-0.8); Monocytes % (Auto) 7.8 % (0.0-7.3); Platelet Count 294 K/mm3 (140-440); Red Blood Count 5.36 M/mm3 (3.65-5.03); Red Cell Distribution Width 15.3 % (13.2-15.2)
[2018-09-02 10:39] LABS: BUN/Creatinine Ratio 95; Blood Urea Nitrogen 19 mg/dL (7-17); Calcium 9.4 mg/dL (8.4-10.2)
[2018-09-02 11:57] LABS: INR 0.98 (0.87-1.13)
[2018-09-02] MEDS ORDERED: CALAN ONE (12:07)
[2018-09-02] MEDS ORDERED: XYLOCAINE 2% INFILTRATI ONE (12:07)
[2018-09-02] MEDS ORDERED: HEPARIN/NS 5000 UNIT/500ML(CATH LAB) 1,000 ML IR ONE (12:07)
[2018-09-02] MEDS ORDERED: HEPARIN 10,000 UNITS/10 ML ONE (12:07)
[2018-09-02] MEDS ORDERED: NITROGLYCERIN SYRINGE 3 ML ONE (12:07)
[2018-09-02] MEDS ORDERED: VERSED ONE (12:08)
[2018-09-02] MEDS ORDERED: SUBLIMAZE ONE (12:08)
--- NOTE | 2018-09-02 13:19 | Short Stay Summary ---
Short Stay Documentation Date of service: 09/02/18 - History H&P: obtained from office - Allergies and Medications Current Medications: Allergies No Known Allergies Allergy (Verified 07/27/18 12:28) Home Medications Medication Instructions Recorded Confirmed Last Taken Type ALBUTEROL Inhaler (OR & NICU) 2 puff INHALATION PRN PRN 07/27/18 09/02/18 09/02/18 History 2 Abilify 30 mg PO DAILY 07/27/18 09/02/18 09/02/18 History 30mg Aspirin BABY CHEW TAB 81 mg PO DAILY 07/27/18 09/02/18 09/02/18 History 81mg Budesonide 32 mcg INNOSTRIL DAILY 07/27/18 09/02/18 09/02/18 History 1 Hydrochlorothiazide 25 mg PO DAILY 07/27/18 09/02/18 09/02/18 History 25mg Lisinopril 20 mg PO DAILY 07/27/18 09/02/18 09/02/18 History 20mg Mometasone Furoate 0.1 mg TRANSDERMA DAILY 07/27/18 09/02/18 09/02/18 History 0.1mg Simvastatin 20 mg PO DAILY 07/27/18 09/02/18 09/02/18 History 20mg Budesonide/Formoterol Fumarate 160 mcg INHALATION BID 07/28/18 09/02/18 09/02/18 History [Symbicort 160-4.5 Mcg Inhaler] 2 Fluticasone [Flonase] 100 mcg NS QDAY #1 bottle 07/30/18 09/02/18 09/02/18 Rx 100mcg Isosorbide Dinitrate [Isosorbide 30 mg PO DAILY 09/02/18 09/02/18 09/02/18 History Dinitrate ER] 30mg Active Medications Sodium Chloride (Nacl 0.9% 500 Ml) 500 mls @ 50 mls/hr IV DIRECT IMANI Stop: 09/02/18 19:59 - Physical exam General appearance: no acute distress Integumentary: no rash HEENT: Atraumatic Lungs: Clear to auscultation Breasts: deferred Heart: Regular rate Gastrointestinal: normal Female Genitourinary: deferred Rectal Exam: deferred Extremities: no ischemia Neurological: Normal gait - Brief post op/procedure progress note Date of procedure: 09/02/18 Pre-op diagnosis: Chest pain Post-op diagnosis: same Procedure: LHC and LV gram Anesthesia: none Findings: See report Surgeon: RC MENDOZA Estimated blood loss: none Pathology: none Condition: stable - Hospital course Hospital course: Uneventful - Disposition Condition at discharge: Good Disposition: DC-01 TO HOME OR SELFCARE Short Stay Discharge Plan Activity: advance as tolerated Weight Bearing Status: Weight Bear as Tolerated Diet: low fat, low cholesterol, low salt Follow up with: JAIME NAIR JR, MD [Primary Care Provider] - 7 Days
[2018-09-02 15:04] VITALS: BP 105/54
--- NOTE | 2018-09-03 09:06 | Cardiac Catherization Report ---
NUCLEAR CARDIAC IMAGING INDICATION: Chest pain and abnormal myocardial perfusion scan. ORDERING PHYSICIAN: Dr. Timo Mathew. PROCEDURES PERFORMED: 1. Selective left and right coronary angiography. 2. Left ventriculography. DESCRIPTION OF PROCEDURE: After obtaining the consent, the patient was draped using sterile technique. A 2% lidocaine was injected into the right wrist. A 5-Maltese vascular sheath was inserted into the right radial artery. A 5-Maltese JL3.5 catheter was used to selectively engage left coronary artery. A 5-Maltese JR4 catheter was used to selectively engage the right coronary artery. A 5-Maltese JR4 catheter was used to perform a left ventriculogram. No complications occurred during the procedure. Hemostasis was achieved at the end of the procedure using manual pressure. No sedation was administered. FINDINGS: HEMODYNAMICS: Aortic pressure 155/60, LV systolic pressure 158 mmHg, LV end diastolic pressure 22 mmHg. CARDIAC STRUCTURES: The left ventricle is normal in size and systolic function. The left ventricular ejection fraction is estimated at 60% with normal wall motion. CORONARY ANATOMY: 1. This is a right dominant circulation. 2. The left main is angiographically normal. 3. The left anterior descending artery is angiographically normal. 4. The left circumflex artery is angiographically normal. 5. The right coronary artery is angiographically normal. IMPRESSION: 1. Angiographically normal right dominant coronary circulation. 2. Normal left ventricular ejection fraction. 3. Left ventricular end-diastolic pressure measured at 22 mmHg. RECOMMENDATIONS: Follow up with referring physician. JOB# [id number] MATHEUS/BETTY
== END 2018-09-02 15:20 | disposition home or self-care (01) ==
LOC: CATHLABREC 08:50
PROVIDERS: ATTEND Internal Medicine
DX: R07.9 Chest pain, unspecified (principal); R94.39 Abnormal result of other cardiovascular function study; I10 Essential (primary) hypertension; I44.2 Atrioventricular block, complete; J45.909 Unspecified asthma, uncomplicated; E78.5 Hyperlipidemia, unspecified; F32.9 Major depressive disorder, single episode, unspecified; E78.00 Pure hypercholesterolemia, unspecified; E66.9 Obesity, unspecified; M19.90 Unspecified osteoarthritis, unspecified site; F41.9 Anxiety disorder, unspecified; Z98.890 Other specified postprocedural states; Z95.0 Presence of cardiac pacemaker; Z79.899 Other long term (current) drug therapy; Z79.82 Long term (current) use of aspirin; Z87.891 Personal history of nicotine dependence; Z86.718 Personal history of other venous thrombosis and embolism; Z68.41 Body mass index [BMI] 40.0-44.9, adult; Z86.73 Personal history of transient ischemic attack (TIA), and cerebral infarction without residual deficits
CPT/HCPCS: 36415; 80048; 85025; 85610; 85730; 93010; 93458; C1894; J1644; J7040; 93005; J2250; J3010; Q9967